=== PATIENT | female | born 1965 | race Caucasian/White ===

== ENCOUNTER 2017-02-21 17:40 | Emergency (ER) | payer BC ==
--- NOTE | 2017-02-21 17:48 | PDOC ---
History of Present Illness - General History Source: Patient Exam Limitations: No Limitations - History of Present Illness Initial Comments: 02/21/17 17:58 The patient is a 51 year old female, with no significant past medical history, who presents today complaining of 1 day of urinary frequency, dysuria, and hematuria. The patient noticed that she was urinating frequently throughout the day which progressively became painful. Around 4:30 this evening, approximately 1 hour and a half ago, she had blood in her urine. She reports associated body aches. She notes that her last UTI was about 20 years ago, but these symptoms are similar to those she experienced in the past. Denies fever, chills, nausea, vomiting. Denies flank pain. Denies abdominal pain. Allergies: cephalexin monohydrate PCP- Dr. Castillo <Jessica Garces - Last Filed: 02/21/17 18:00> <Juliano Sweeney - Last Filed: 02/21/17 18:15> - General Chief Complaint: Urinary Problem Stated Complaint: URINARY SX Time Seen by Provider: 02/21/17 17:47 Past History <Jessica Garces - Last Filed: 02/21/17 18:00> - Past Medical History Anemia: No Asthma: No Cancer: No Cardiac Disorders: No CVA: No COPD: No CHF: No Dementia: No Diabetes: No GI Disorders: No Disorders: No HTN: No Hypercholesterolemia: No Liver Disease: No Seizures: No Thyroid Disease: No - Surgical History Abdominal Surgery: Yes (LAPAROSCOPIC SURGERY FOR ENDOMETRIOSIS) Appendectomy: No Cardiac Surgery: No Cholecystectomy: No Lung Surgery: No Neurologic Surgery: No Orthopedic Surgery: No - Psycho/Social/Smoking Cessation Hx Anxiety: Yes Suicidal Ideation: No Smoking History: Current some day smoker Have you smoked in the past 12 months: Yes Number of Cigarettes Smoked Daily: 5 Hx Alcohol Use: Yes (RARE) Drug/Substance Use Hx: No Substance Use Type: None, Marijuana Hx Substance Use Treatment: No <Juliano Sweeney - Last Filed: 02/21/17 18:15> - Past Medical History Allergies/Adverse Reactions: Allergies Allergy/AdvReac Type Severity Reaction Status Date / Time cephalexin monohydrate Allergy Intermediate Swelling Verified 02/21/17 17:49 [From Keflex] CAT DANDER Allergy Mild SNEEZING Uncoded 02/21/17 17:49 DOG DANDER Allergy Mild SNEEZING Uncoded 02/21/17 17:49 GRASS Allergy Mild SNEEZING Uncoded 02/21/17 17:49 RABBIT DANDER Allergy Mild SNEEZING Uncoded 02/21/17 17:49 TREES Allergy Mild SNEEZING Uncoded 02/21/17 17:49 Home Medications: Ambulatory Orders Fluoxetine HCl [Prozac] 80 mg PO DAILY 09/19/12 Phenazopyridine HCl [Pyridium] 200 mg PO TID #9 tablet 02/21/17 Sulfamethoxazole/Trimethoprim [Bactrim Ds Tablet] 1 each PO BID #20 tablet 02/21 Review of Systems - Review of Systems Able to Perform ROS?: Yes Comments:: 02/21/17 17:58 GENERAL/CONSTITUTIONAL: +body aches. No fever or chills. No weakness. GASTROINTESTINAL: No nausea, vomiting, diarrhea or constipation. GENITOURINARY: + dysuria, +frequency, + hematuria MUSCULOSKELETAL: No joint or muscle swelling or pain. No neck or back pain. SKIN: No rash NEUROLOGIC: No headache, vertigo, loss of consciousness, or change in strength/ sensation. <Jessica Garces - Last Filed: 02/21/17 18:00> *Physical Exam - Physical Exam Comments: 02/21/17 17:59 GENERAL: Awake, alert, and fully oriented, in no acute distress EYES: PERRLA, EOMI, sclera anicteric, conjunctiva clear LUNGS: Breath sounds equal, clear to auscultation bilaterally. No wheezes, and no crackles HEART: Regular rate and rhythm, normal S1 and S2, no murmurs, rubs or gallops ABDOMEN: Soft, nontender, normoactive bowel sounds. No guarding, no rebound. No masses EXTREMITIES: Normal range of motion, no edema. No clubbing or cyanosis. No cords, erythema, or tenderness NEUROLOGICAL: Cranial nerves II through XII grossly intact. Normal speech, normal gait SKIN: Warm, Dry, normal turgor, no rashes or lesions noted. <Jessica Garces - Last Filed: 02/21/17 18:00> *DC/Admit/Observation/Transfer - Attestations Scribe Attestion: 02/21/17 17:59 Documentation prepared by JUAN Martin, acting as biomedical manager for Juliano Sweeney DO <Jessica Garces - Last Filed: 02/21/17 18:00> - Discharge Dispostion Admit: No - Attestations Physician Attestion: 02/21/17 17:47 I, Dr. Juliano Sweeney, attest that this document has been prepared under my direction and personally reviewed by me in its entirety. I further attest, that it accurately reflects all work, treatment, procedures and medical decision -making performed by me. <Juliano Sweeney - Last Filed: 02/21/17 18:15> Diagnosis at time of Disposition: Urinary tract infection Qualifiers: Urinary tract infection type: acute cystitis Hematuria presence: with hematuria Qualified Code(s): N30.01 - Acute cystitis with hematuria - Discharge Dispostion Disposition: HOME Condition at time of disposition: Improved - Prescriptions Prescriptions: Sulfamethoxazole/Trimethoprim [Bactrim Ds Tablet] 1 each PO BID #20 tablet Phenazopyridine HCl [Pyridium] 200 mg PO TID #9 tablet - Referrals Referrals: Levi Castillo MD [Primary Care Provider] - - Patient Instructions Printed Discharge Instructions: DI for Urinary Tract Infection (UTI) Additional Instructions: Mrs Mann- It looks like this is a UTI. The Bactrim DS is the antibiotic, it is twice a day for 10 days. Pyridium is a urinary anesthetic, and it will turn your urine a bright burnt orange color. Wear a panty liner or shield. Return to us if worse or new symptoms occur. See your doctor early next week. Please drink five 20 ounce bottles of water a day. Hope you feel better real soon. Best- Dr. Juliano Sweeney
[2017-02-21] MEDS ORDERED: SULFAMETHOXAZOLE/TRIMETHOPRIM 800MG/160MG D.S. TABLET PO ONE (17:53)
[2017-02-21] MEDS ORDERED: PHENAZOPYRIDINE HCL 100 MG TABLET (FP) PO ONE (17:53)
[2017-02-21 18:02] VITALS: BP 120/86; PULSE 66; TEMP 98; BMI 23.8
[2017-02-21 18:03] LABS: PH,URINE 7.5 (4.5-8); URINE BILIRUBIN Negative (NEGATIVE); URINE GLUCOSE (UA) Negative (NEGATIVE); URINE KETONE Negative (NEGATIVE); URINE NITRITE Negative (NEGATIVE); URINE PROTEIN Negative (NEGATIVE); URINE UROBILINOGEN 0.2 (0.2-1.0)
[2017-02-21] MEDS ORDERED: SULFAMETHOXAZOLE/TRIMETHOPRIM 800MG/160MG D.S. TABLET ONE (18:03)
[2017-02-21] MEDS ORDERED: PHENAZOPYRIDINE HCL 100 MG TABLET (FP) ONE (18:03)
[2017-02-21 18:04] LABS: URINE APPEARANCE HAZY; URINE BLOOD 3+ (NEGATIVE); URINE COLOR YELLOW; URINE LEUK ESTERASE 3+ (NEGATIVE)
[2017-02-21 20:16] LABS: URINE BACTERIA FEW /hpf (NEGATIVE); URINE RBC 0-1 /hpf (0-3)
== END 2017-02-21 18:25 | disposition home or self-care (01) ==
LOC: FER 17:40
DX: N30.01 Acute cystitis with hematuria (principal); F17.210 Nicotine dependence, cigarettes, uncomplicated; F41.9 Anxiety disorder, unspecified
CPT/HCPCS: 81003; 81015; 87086; 87186; 99283-25

== ENCOUNTER 2020-05-31 13:24 | Emergency (ER) | payer BC | END 2020-05-31 13:37 | disposition home or self-care (01) | LOC: JVIRT 13:24 | DX: Z03.818 Encounter for observation for suspected exposure to other biological agents ruled out (principal) | CPT/HCPCS: 87804; C9803; G2012-GT; Q3014-GT; U0003 ==

== ENCOUNTER 2023-10-12 22:25 | Emergency (ER) | payer BC ==
[2023-10-12 23:28] VITALS: BP 118/81; PULSE 50; RESP 18; TEMP 98.6; BMI 20.1
[2023-10-12] MEDS ORDERED: IBUPROFEN 600 MG TABLET (FP) PO ONE (23:32)
[2023-10-12] MEDS: IBUPROFEN 600 MG TABLET (FP) PO ONE (23:35)
== END 2023-10-12 23:35 | disposition home or self-care (01) ==
LOC: FER 22:25
DX: S92.901A Unspecified fracture of right foot, initial encounter for closed fracture (principal); X50.1XXA Overexertion from prolonged static or awkward postures, initial encounter; Y93.01 Activity, walking, marching and hiking
CPT/HCPCS: 73630-TC-RT-FY; 99283-25

== ENCOUNTER 2024-03-27 17:28 | Emergency (ER) | payer BC ==
[2024-03-27 17:34] VITALS: BP 138/95; PULSE 53; RESP 14; TEMP 98.9; BMI 20.1
[2024-03-27] MEDS: ACETAMINOPHEN 325 MG TABLET (FP) PO ONE (18:35)
[2024-03-27] MEDS ORDERED: TETANUS AND DIPHTHERIA TOXOID 0.5 ML DISP.SYRIN IM ONE (18:44)
[2024-03-27] MEDS: DIPHTH,PERTUSS(ACELL),TET VAC 0.5 ML VIAL IM ONE (18:47)
== END 2024-03-27 19:02 | disposition home or self-care (01) ==
LOC: FER 17:28
PROC: 3E0234Z Introduction of Serum, Toxoid and Vaccine into Muscle, Percutaneous Approach (ICD-10-PCS; principal; 2024-03-27)
DX: S40.021A Contusion of right upper arm, initial encounter (principal); X50.9XXA Other and unspecified overexertion or strenuous movements or postures, initial encounter; Z23 Encounter for immunization
CPT/HCPCS: 73090-TC-RT-FY; 99283-25